=== PATIENT | male | born 1970 | race Caucasian/White ===

== ENCOUNTER 2017-07-25 11:47 | Emergency (ER) | payer SELFPAY ==
[~2017-07-25] VITALS: Ht 182.9 cm; Wt 77.0 kg
[~2017-07-25 11:47] MED LIST: ALBU25IPRN INH; CHLO10 PO; IBUP600 PO; PROT40TA PO; PROZ20CA11 PO; QUET300 PO; THIA100T PO; ZIPR40 PO
[2017-07-25 11:51] VITALS: BP 107/65; PULSE 101; RESP 16; TEMP 98.2; O2SAT 99
--- NOTE | 2017-07-25 11:55 | PD ---
Physical Exam Time Seen by Provider: 11:52 Narrative 47yo M sent by [facility] for hyperkalemia 6.0. Won't see him with potassium level that high. +SOB that he says os nothing new. Denies chest pain , heart palpitations. Patient seen in triage. VS reviewed. Patient awaiting bed placement. Data Data Last Documented VS Vital Signs Date Time Temp Pulse Resp B/P (MAP) Pulse Ox O2 Delivery O2 Flow Rate FiO2 07/25/17 11:51 98.2 101 16 107/65 (79) 99 MDM Supervised Visit with CATALINO: Ro Cabrera Jul 25, 2017 11:55
[2017-07-25 12:23] LABS: AUTOMATED NEUTROPHIL # 6.9 TH/MM3 (1.8-7.7); BASOPHIL # 0.1 TH/MM3 (0-0.2); BASOPHIL % 0.6 % (0.0-2.0); EOSINOPHIL # 0.2 TH/MM3 (0-0.4); EOSINOPHIL % 2.1 % (0.0-4.0); HEMATOCRIT 42.2 % (39.0-51.0); HEMO FLAGS DIFF FINAL; LYMPH % 19.1 % (9.0-44.0); LYMPHOCYTE # 1.9 TH/MM3 (1.0-4.8); MEAN CORPUSCULAR HGB CONC 33.7 % (32.0-36.0); MONO % 7.5 % (0.0-8.0); NEUT % 70.7 % (16.0-70.0); PLATELET COUNT 363 TH/MM3 (150-450); RED BLOOD COUNT 4.58 MIL/MM3 (4.50-5.90); RED CELL DISTRIBUTION WIDTH 13.9 % (11.6-17.2); WHITE BLOOD COUNT 9.8 TH/MM3 (4.0-11.0)
[2017-07-25 12:42] LABS: BICARBONATE 25.7 MEQ/L (21.0-32.0); POTASSIUM 4.3 MEQ/L (3.5-5.1)
--- NOTE | 2017-07-25 12:47 | RADRPT ---
EXAM DATE/TIME: 07/25/2017 12:24 [facility] COMPARISON: CHEST SINGLE AP, April 03, 2016, 3:08. INDICATIONS : Shortess of breath. MEDICAL HISTORY : Rib fractures SURGICAL HISTORY : None. ENCOUNTER: Initial ACUITY: 2 months PAIN SCORE: 0/10 LOCATION: Bilateral chest FINDINGS: PA and lateral views of the chest demonstrate the lungs to be symmetrically aerated without evidence of mass, infiltrate or effusion. The cardiomediastinal contours are unremarkable. Osseous structure s reveal multiple right upper remote healed rib fractures and secondary chest deformity. CONCLUSION: No acute disease. Norman Quinones MD on July 25, 2017 at 12:45 Board Certified Radiologist. This report was verified electronically.
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
[2017-07-25] MEDS ORDERED: SERO200T PO (13:54)
[2017-07-25] MEDS ORDERED: DULO20 PO (13:54)
[2017-07-25 14:17] VITALS: BP 110/69; TEMP 98
--- NOTE | 2017-07-29 01:28 | EKG ---
Date Performed: 07/25/2017 Time Performed: 12:03:51 PTAGE: 47 years EKG: Sinus rhythm POSSIBLE RIGHT VENTRICULAR CONDUCTION DELAY BORDERLINE ECG PREVIOUS TRACING : 04/02/2016 00.12 Compared to prior tracing no significant change DOCTOR: Lux Hudson Interpretating Date/Time 07/29/2017 01:26:28
== END 2017-07-25 14:18 | disposition home or self-care (01) ==
LOC: NEPD 11:47
DX: F41.9 Anxiety disorder, unspecified (principal); F39 Unspecified mood [affective] disorder; Z79.899 Other long term (current) drug therapy
CPT/HCPCS: 71020; 80048; 85025; 93005; 99285